=== PATIENT | male | born 1965 | race Caucasian/White ===

== ENCOUNTER 2016-10-06 15:53 | Emergency (ER) | payer OTHER ==
[~2016-10-06] VITALS: Ht 182.9 cm; Wt 102.1 kg
[2016-10-06] MEDS ORDERED: MOBIC7.5 MG PO (16:22)
[2016-10-06] MEDS ORDERED: ROBAXIN 750 MG750 M1 PO (16:22)
[2016-10-06] MEDS ORDERED: PREDNISONE 20 M20 MG PO (16:22)
[2016-10-06 16:45] VITALS: BP 158/70
== END 2016-10-06 16:45 | disposition home or self-care (01) ==
LOC: ER 15:53
DX: M54.16 Radiculopathy, lumbar region (principal)